=== PATIENT | male | born 1995 | race Caucasian/White ===

== ENCOUNTER 2018-02-23 20:33 | Emergency (ER) | payer OTHER ==
[~2018-02-23] VITALS: Ht 177.8 cm; Wt 72.6 kg
[~2018-02-23 20:33] MED LIST: CODE BLUE PARTICIPANT 1 EA MISC MC ONE; EPINEPHrine PFS 0.1 MG/ML SYR IVP ONE; SODIUM BICARBONATE 8.4% PFS 50 MEQ/50 ML SYR IVP ONE
--- NOTE | 2018-02-23 20:33 | NUR ---
2031- PT BIBA ALS, FULL ARREST. TAKEN TO BED 10. DR. NEWELL AND RT AT BEDSIDE.
--- NOTE | 2018-02-23 20:33 | NUR ---
Pt BIBA traumatic full arrest. CPR in progress with BVM. See code sheet.
--- NOTE | 2018-02-23 20:50 | NUR ---
[place] [facility] AT THE ER
--- NOTE | 2018-02-23 20:56 | NUR ---
PATIENT PRONOUNCED BY DR. German NEWELL AT THIS TIME
--- NOTE | 2018-02-23 21:33 | NUR ---
FAMILY AT BEDSIDE
--- NOTE | 2018-02-23 22:42 | NUR ---
[place] [facility] AT BEDSIDE
--- NOTE | 2018-02-23 22:59 | NUR ---
[place] [employer] report number: [id number]
--- NOTE | 2018-02-24 01:56 | NUR ---
[employer]PER[employer] AT BEDSIDE
--- NOTE | 2018-02-24 02:23 | NUR ---
PT REMAINS COLLECTED BY [employer]IST SALES
== END 2018-02-23 20:56 | disposition expired ==
LOC: EDBD 20:33 → MED 20:33
DX: I46.9 Cardiac arrest, cause unspecified (principal); V23.4XXA Motorcycle driver injured in collision with car, pick-up truck or van in traffic accident, initial encounter; Y93.55 Activity, bike riding; Y92.89 Other specified places as the place of occurrence of the external cause; Y99.8 Other external cause status
CPT/HCPCS: 31500; 32551; 36556; 99285; J0171